=== PATIENT | female | born 1980 | race Caucasian/White ===

== ENCOUNTER 2022-06-12 12:56 | Emergency (ER) | payer OTHER ==
[2022-06-12 13:47] VITALS: O2SAT 98
--- NOTE | 2022-06-12 13:55 | XRAY ---
Indication: Pain following fall. Comparison: None 3 portable views right knee demonstrates minimal medial joint space narrowing and mild lateral subcutaneous venous varicosities. No other bony, articular, or soft tissue abnormalities.
--- NOTE | 2022-06-12 13:55 | XRAY ---
Indication: Pain following fall. Comparison: None 3 portable views left ankle demonstrates tiny posterior heel spur and mild soft tissue swelling. No other bony, articular, or soft tissue abnormalities.
[2022-06-12] MEDS ORDERED: TORAdol 30 mg Injection IM ONE (14:05)
[2022-06-12] MEDS ORDERED: TORAdol 30 mg Injection ONE (14:20)
--- NOTE | 2022-06-12 15:01 | ERPHSYRPT ---
- History of Present Illness Time Seen by Provider: 06/12/22 13:36 Source: patient Exam Limitations: no limitations Patient Subjective Stated Complaint: pt here for a fall today at work,she states she tripped she thinks on a thresthold, co pain to left ankle and right knee Triage Nursing Assessment: pt alert, walked in, resp easy, skin w/d/p. no felling noted, able to bear wt Physician History: 42-year-old female presented in the ER with chief complaint of left ankle and right knee pain after she slipped and twisted both joints almost an hour prior to arrival. She is complaining of difficulty weightbearing especially on the left ankle area. Moderate intensity sharp pain. No injury anywhere else. Method of Injury: fell, twisted Occurred: hours ago (1) Quality: sharpness Severity of Pain-Max: moderate Severity of Pain-Current: moderate Lower Extremities Pain: thigh: right, ankle: left Modifying Factors: Improves With: immobilization. Worsens With: movement Associated Symptoms: unable to bear weight, snapping sensation Allergies/Adverse Reactions: morphine Allergy (Verified 06/12/22 13:14) Hx Tetanus, Diphtheria Vaccination/Date Given: No Hx Influenza Vaccination/Date Given: No Hx Pneumococcal Vaccination/Date Given: No Immunizations Up to Date: No Travel Risk - International Travel Have you traveled outside of the country in past 3 weeks: No - Coronavirus Screening Are you exhibiting any of the following symptoms?: No Close contact with a COVID-19 positive Pt in past 14-21 Days: No - Vaccine Status Have you recieved a Covid-19 vaccination: No - Review of Systems Constitutional: No Symptoms Ears, Nose, & Throat: No Symptoms Respiratory: No Symptoms Cardiac: No Symptoms Abdominal/Gastrointestinal: No Symptoms Genitourinary Symptoms: No Symptoms Musculoskeletal: Fall, Injury, Joint Pain Skin: No Symptoms Neurological: No Symptoms Endocrine: No Symptoms Hematologic/Lymphatic: No Symptoms Immunological/Allergic: No Symptoms - Past Medical History Pertinent Past Medical History: No - Past Surgical History Past Surgical History: Yes Musculoskeletal: Orthopedic Surgery Female Surgical History: Section, Tubal Ligation Other Surgical History: feet - Social History Smoking Status: Former smoker Exposure to second hand smoke: No Drug Use: none Patient Lives Alone: No - Female History Hx Last Menstrual Period: may Hx Now: No - Nursing Vital Signs Nursing Vital Signs: Initial Vital Signs Temperature 97.8 F 06/12/22 12:56 Pulse Rate 96 H 06/12/22 12:56 Respiratory Rate 18 06/12/22 12:56 Blood Pressure 150/64 06/12/22 12:56 O2 Sat by Pulse Oximetry 98 06/12/22 12:56 Pain Scale Pain Intensity 8 - Physical Exam General Appearance: no apparent distress, alert Neck Exam: normal inspection, full range of motion Cardiovascular/Respiratory Exam: normal breath sounds, regular rate/rhythm Back Exam: normal inspection, normal range of motion Legs Exam: bilateral leg: non-tender, normal inspection, normal range of motion Knees Exam: right knee: soft tissue tenderness (Posterior knee), left knee: non- tender, bilateral knee: normal inspection, normal range of motion, no evidence of injury Ankle Exam: right ankle: non-tender, normal inspection, normal range of motion, left ankle: bone tenderness (Lateral malleolus), limited range of motion, soft tissue tenderness, swelling Foot Exam: bilateral foot: non-tender, normal inspection, normal range of motion, no evidence of injury Neuro/Tendon Exam: normal sensation, normal motor functions Mental Status Exam: alert, oriented x 3, cooperative Skin Exam: normal color SpO2 Interpretation: normal SpO2: 98 O2 Delivery: Room Air Ordered Tests: Active Orders 24 hr Category Date Time Status ANKLE (3 VIEWS) Stat Exams 06/12/22 13:19 Completed KNEE (3 VIEWS) Stat Exams 06/12/22 13:20 Completed Medication Summary Discontinued Medications Generic Name Dose Route Start Last Admin Trade Name Natanaelq PRN Reason Stop Dose Admin Ketorolac Tromethamine 30 mg 06/12/22 14:05 06/12/22 14:35 Ketorolac Tromethamine 30 Mg/Ml Inj IM 06/12/22 14:06 30 mg STAT ONE Administration Ketorolac Tromethamine Confirm 06/12/22 14:20 Ketorolac Tromethamine 30 Mg/Ml Inj Administered 06/12/22 14:21 Dose 30 mg .ROUTE .STK-MED ONE - Progress Progress: pain not gone completely Progress Note: 06/12/22 14:59 42-year-old is evaluated for pain and swelling left ankle and right knee after she twisted while at work. Intact distal neurovascular. Given symptomatic treatment for pain and feeling better on reevaluation. No obvious fracture dislocation noticed on imaging of knee and ankle, I believe has sprain. Placed in Aircast, crutches, NSAIDs and Tylenol, outpatient podiatry follow-up recommended. Discussed signs symptoms of worsening needing return to ER which she seems understanding. 06/12/22 15:02 Counseled pt/family regarding: diagnosis, need for follow-up, rad results Medical Desision Making - Discussion of managment Reviewed:: Test results Agreed on:: need for follow-up - Diagnostic Testing Radiological Interpretation: Reviewed by me - Risk of complications The pt has a mod risk of morbidity or mortality based on: Need for prescription drug management - Departure Departure Disposition: Home Clinical Impression: Ankle sprain Condition: Stable Critical Care Time: No Referrals: DOCTOR,NO FAMILY [Primary Care Provider] - Follow up/PCP as directed JAKE BARRAZA DPM [ACTIVE STAFF] - Follow up/PCP as directed (Wednesday for reevaluation) Instructions: Ankle Sprain (DC) Additional Instructions: Take Tylenol/ibuprofen as needed for pain. Keep it elevated. Weightbearing as tolerated. Follow-up with podiatry for reevaluation. Return to ER for any worsening. Prescriptions: Ibuprofen 600 mg PO Q6HPRN PRN 10 Days #20 tablet PRN Reason: Pain
[2022-06-12 15:06] VITALS: BP 136/80; PULSE 86
== END 2022-06-12 15:24 | disposition home or self-care (01) ==
LOC: ED 12:56
DX: S93.402A Sprain of unspecified ligament of left ankle, initial encounter (principal); W18.40XA Slipping, tripping and stumbling without falling, unspecified, initial encounter; Y99.0 Civilian activity done for income or pay; M25.561 Pain in right knee; Z28.310 Unvaccinated for COVID-19
CPT/HCPCS: 73562; 73610; 96372; 99283; J1885